=== PATIENT | male | born 1950 | race Caucasian/White ===

== ENCOUNTER 2022-07-07 11:39 | Inpatient (IN) | payer MEDICARE, OTHER ==
[~2022-07-07] VITALS: Ht 167.6 cm; Wt 78.5 kg
[2022-07-07] MEDS ORDERED: IV NS 0.9% 1,000 ML BAG IV ONE (12:00)
--- NOTE | 2022-07-07 12:03 | NUR ---
ELECTRICIAN OUTSIDE AT BEDSIDE
[2022-07-07 12:42] LABS: ALANINE AMINOTRANSFERASE 43 U/L (12-78); ALKALINE PHOSPHATASE 75 U/L (46-116); ASPARTATE AMINOTRANSFERASE 20 U/L (15-37); BILIRUBIN,DIRECT 0.1 mg/dL (0.0-0.2); BILIRUBIN,TOTAL 0.6 mg/dL (0.2-1.0); CALCIUM, SERUM 9.7 mg/dL (8.5-10.1); CARBON DIOXIDE 28 mmol/L (21-32); CHLORIDE 102 mmol/L (98-107); GLUCOSE 135 mg/dL (74-106); MAGNESIUM 2.4 mg/dL (1.8-2.4); POTASSIUM 3.8 mmol/L (3.5-5.1); SODIUM SERUM 140 mmol/L (136-145); UREA NITROGEN, BLOOD 22 mg/dL (7-18)
[2022-07-07 12:45] LABS: BASOPHILS # (AUTO) 0.1 K/uL (0.0-0.2); EOSINOPHILS % (AUTO) 2.8 % (0.0-6.0); HEMATOCRIT 51 % (39-51); HEMOGLOBIN 16.7 g/dL (13.5-17.5); LYMPHOCYTES # (AUTO) 1.4 K/uL (0.8-4.8); LYMPHOCYTES % (AUTO) 14.7 % (20.0-44.0); MEAN CORPUSCULAR HGB CONC 33 g/dl (31.0-36.0); MEAN CORPUSCULAR VOLUME 91 fL (80-96); MONOCYTES # (AUTO) 0.6 K/uL (0.1-1.30); NEUTROPHILS % (AUTO) 75.5 % (43.0-81.0); PLATELET COUNT (AUTO) 123 K/uL (150-450); RED BLOOD CELL COUNT(AUTO) 5.62 MIL/uL (4.5-6.0); WHITE BLOOD COUNT (AUTO) 9.3 K/uL (4.3-11.0)
[2022-07-07] MEDS ORDERED: DILTIAZEM HCL 25 MG IV ONE (12:49)
--- NOTE | 2022-07-07 12:55 | NUR ---
COVID SWAB OBTAINED AND SENT TO LAB
[2022-07-07] MEDS ORDERED: DILTIAZEM HCL 25 MG IV IV ONE ×2 (13:00→14:30)
[2022-07-07] MEDS ORDERED: IV NS 0.9% 1,000 ML IV ONE (14:30)
[2022-07-07] MEDS ORDERED: DILTIAZEM HCL 50 MG IV ONE (14:34)
[2022-07-07] MEDS ORDERED: LOSA25TA27 PO (15:09)
[2022-07-07] MEDS ORDERED: ASCO-352 PO (15:11)
[2022-07-07] MEDS ORDERED: CYAN-51 PO (15:11)
--- NOTE | 2022-07-07 15:27 | NUR ---
BED 309-1. ADMITTING DEPARTMENT NOTIFIED.
[2022-07-07] MEDS ORDERED: MAGNESIUM HYDROXIDE 30 ML UDC PO PRN (15:30)
[2022-07-07] MEDS ORDERED: HYDROCODONE/APAP 5/325MG TABLET PO PRN (15:30)
[2022-07-07] MEDS ORDERED: DILTIAZEM HCL CD 120 MG PO SCH (15:30)
[2022-07-07] MEDS ORDERED: LORAZEPAM 1 MG TABLET PO PRN (15:30)
[2022-07-07] MEDS ORDERED: ONDANSETRON HCL/PF 4 MG/2 ML VIAL IVP PRN (15:30)
[2022-07-07] MEDS ORDERED: MORPHINE SULFATE INJ 2 MG/ML DISP.SYRIN IV PRN (15:30)
[2022-07-07] MEDS ORDERED: TEMAZEPAM 15 MG CAPSULE PO PRN (15:30)
[2022-07-07] MEDS ORDERED: Z GUARD REMEDY 4 OZ OINT TP PRN (15:30)
[2022-07-07] MEDS ORDERED: ACETAMINOPHEN 325 MG TABLET PO PRN (15:30)
[2022-07-07] MEDS ORDERED: MAG HYDROX/AL HYDROX/SIMETH 30 ML UDC PO PRN (15:30)
--- NOTE | 2022-07-07 15:33 | NUR ---
REPORT GIVEN TO DEVIN ON THE 3RD FLOOR
--- NOTE | 2022-07-07 16:19 | NUR ---
TAR MANATM MECHANIC NOTE (DAY SHIFT 3 ) Patient arrived to [facility], Room 309- Bed 1 at 16:12 hours via gurney from ED Room # 1. Patient presented as alert and oriented x 4 , in no distress, denying pain, denying nausea, denying vomiting, denying dizziness. Patient stated he was experiencing rapid heart rate. alarm security or surveillance monitor showing uncontrolled atrial fibrillation ranging from 80s bpm to 120 bpm. Vital signs were stable: Temp= 98.2F oral; HR = 83; RR= 20; Pain=0; BP = 124/71; O2 Sat = 96% RA. Patient was accompanied by his two daughters who translated from Spanis to Uzbek for nurse since patient speaks only German. Oriented patient and his daughters to room, call for help vila, phone system and safety protocols. Safety precautions in place: bed in lowest/locked brakes position; three bed side rails up; call vila/light with bed side table within easy reach of patient. Will continue to monitor and care for patient per hospitalist provider's POC.
[2022-07-07] MEDS ORDERED: AMIODARONE 150 MG in IV D5W 100 ML IV ONE (18:30)
[2022-07-07] MEDS ORDERED: AMIODARONE 450 MG in IV D5W 250 ML IV PRN (18:30)
--- NOTE | 2022-07-07 18:50 | NUR ---
TRANSFER TO [facility] FOR CLOSE MEDICATION MONITORING RN NOTE Patient transferred in his bed to [facility], Room 214- Bed 1 per MD order, accompanied by his daughters at 18:45 hours. Report given to receiving RN at [facility].
--- NOTE | 2022-07-07 18:55 | NUR ---
RN NOTES: RECEIVED PT FROM [facility] UNIT.AWAKE ALERT AND ORIENTED X 4 DENIED CHEST PAIN OR DISCOMFORT,FAMILY AT BEDSIDE TO START AMIODARONE DRIP FOR A FIB
[2022-07-07] MEDS: AMIODARONE 450 MG in IV D5W 241 ML IV PRN (19:00)
--- NOTE | 2022-07-07 19:15 | NUR ---
RN NOTES: BEDSIDE REPORT GIVEN TO MADELYN STRATTON , AMIODARONE DRIP ONGOING, WILL CONTINUE PLAN OF CARE
[2022-07-07] MEDS: ENOXAPARIN SODIUM 80 MG/0.8 ML DISP.SYRIN SQ SCH (19:22)
--- NOTE | 2022-07-07 19:30 | NUR ---
[facility] RN OPENING NOTE RECEIVED PT IN BED , AWAKE, A/O X 4, SWEDISH SPEAKING, ABLE TO VERBALIZE NEEDS. ON ROOM AIR, TOLERATING WELL, SATING @ 99%. NO S/SX OF ACUTE RESPI DISTRESS NOTED AT THIS TIME. NO SOB. BREATHING IS EVEN AND UNLABORED. IV ACCESS ON LAC #18G RUNNING AMIO DRIP AT 1MG/MIN. ON TELEMONITOR CURRENTLY READING AFIB AT 80'S, ALL SAFETY MEASURES IMPLEMENTED: BED ALARM IS ON. HEAD OF BED ELEVATED. BED IS LOCKED, IN LOWEST POSITION AND SIDE RAILS UP. CALL LIGHT WITHIN REACH. FAMILY MEMBER AT BEDSIDE. WILL CONTINUE TO MONITOR AND REASSESS FOR ANY CHANGES.
--- NOTE | 2022-07-07 23:00 | NUR ---
RN NOTE PT CONVERTED TO SR WITH HR AT 65. MADE AWARE. WILL CONT TO MONITOR.
[2022-07-08] MEDS: AMIODARONE 450 MG in IV D5W 241 ML IV PRN ×2
--- NOTE | 2022-07-08 00:35 | NUR ---
RN NOTE BP CHECKED AT 90/45. ART GALLERY DIRECTOR ORDERED 500 CC NS BOLUS. TITRATED AMIO DRIP TO .5MG/MIN ORDERED. WILL CONT TO MONITOR.
[2022-07-08] MEDS ORDERED: IV NS 0.9% 500 ML IV ONE (01:30)
[2022-07-08 06:17] LABS: BASOPHILS # (AUTO) 0.1 K/uL (0.0-0.2); BASOPHILS % (AUTO) 0.5 % (0.0-2.0); HEMATOCRIT 48 % (39-51); HEMOGLOBIN 15.7 g/dL (13.5-17.5); LYMPHOCYTES # (AUTO) 1.6 K/uL (0.8-4.8); LYMPHOCYTES % (AUTO) 14.4 % (20.0-44.0); MEAN CORPUSCULAR HGB CONC 33 g/dl (31.0-36.0); MEAN CORPUSCULAR VOLUME 93 fL (80-96); MONOCYTES # (AUTO) 0.7 K/uL (0.1-1.30); NEUTROPHILS # (AUTO) 8.6 K/uL (1.8-8.9); NEUTROPHILS % (AUTO) 77.1 % (43.0-81.0); PLATELET COUNT (AUTO) 122 K/uL (150-450); RED BLOOD CELL COUNT(AUTO) 5.17 MIL/uL (4.5-6.0); WHITE BLOOD COUNT (AUTO) 11.2 K/uL (4.3-11.0)
[2022-07-08] MEDS: ENOXAPARIN SODIUM 80 MG/0.8 ML DISP.SYRIN SQ SCH ×2 (06:18→18:29)
--- NOTE | 2022-07-08 06:38 | NUR ---
[facility] RN CLOSING NOTE PT REMAINS IN BED , ASLEEP, A/O X 4, WELSH SPEAKING, ABLE TO VERBALIZE NEEDS. ON ROOM AIR, TOLERATING WELL, SATING @ 99%. NO S/SX OF ACUTE RESPI DISTRESS NOTED AT THIS TIME. NO SOB. BREATHING IS EVEN AND UNLABORED. IV ACCESS ON LAC #18G SL. ON TELEMONITOR CURRENTLY READING SR AT 65, ALL SAFETY MEASURES IMPLEMENTED: BED ALARM IS ON. HEAD OF BED ELEVATED. BED IS LOCKED, IN LOWEST POSITION AND SIDE RAILS UP. CALL LIGHT WITHIN REACH. FAMILY MEMBER AT BEDSIDE. ALL DUE MEDS GIVEN, KEPT DRY AND CLEAN, WILL ENDORSE TO AM SHIFT NURSE FOR CONTINUITY CARE.
[2022-07-08 06:45] LABS: CALCIUM, SERUM 8.3 mg/dL (8.5-10.1); MAGNESIUM 2.3 mg/dL (1.8-2.4); PHOSPHORUS 3.1 mg/dL (2.5-4.9); POTASSIUM 3.7 mmol/L (3.5-5.1)
[2022-07-08 06:50] LABS: THYROID STIMULATING HORMONE 1.875 uIU/mL (0.358-3.74)
[2022-07-08 08:00] VITALS: BP 158/81
[2022-07-08] MEDS: PANTOPRAZOLE 40 MG TABLET.DR PO SCH (09:10)
[2022-07-08] MEDS: LOSARTAN POTASSIUM 25 MG TABLET PO SCH (09:10)
[2022-07-08] MEDS: ASCORBIC ACID 500 MG TABLET PO SCH (09:10)
[2022-07-08] MEDS: ASPIRIN 81 MG TAB.CHEW PO SCH (09:11)
[2022-07-08] MEDS: DRONEDARONE HYDROCHLORIDE 400 MG TABLET PO SCH ×2 (09:59→17:51)
[2022-07-08] MEDS: ATORVASTATIN 10 MG TABLET PO SCH (09:59)
[2022-07-08 12:00] VITALS: BP 123/56
--- NOTE | 2022-07-08 12:00 | NUR ---
RN NOTE PT EDUCATED ON NEED FOR [facility]. PT IN AGREEMENT WITH TEST. CONSENT SIGNED.
[2022-07-08] MEDS ORDERED: IOHEXOL-350 100 ML VIAL IV ONE (12:48)
[2022-07-08] MEDS ORDERED: IV NS 0.9% 250 ML IV ONE (12:48)
[2022-07-08] MEDS: METOPROLOL TARTRATE INJ 5 MG/5 ML AMPUL IVP PRN ×2 (13:10→13:15)
[2022-07-08] MEDS ORDERED: NITROGLYCERIN 0.4 MG/TAB BOTTLE SL ONE (13:30)
--- NOTE | 2022-07-08 13:35 | NUR ---
RN NOTE PT BACK FROM [facility]. DAUGHTER AT BEDSIDE. VITAL SIGNS STABLE
[2022-07-08 16:00] VITALS: BP 134/65
--- NOTE | 2022-07-08 19:30 | NUR ---
[facility] RN OPENING NOTE RECEIVED PT IN BED, AWAKE, A/O X 4, VINCENTIAN SPEAKING, ABLE TO VERBALIZE NEEDS. ON ROOM AIR, TOLERATING WELL, SATING @ 99%. NO S/SX OF ACUTE RESPI DISTRESS NOTED AT THIS TIME. NO SOB. BREATHING IS EVEN AND UNLABORED. IV ACCESS ON LAC #18G SL INTACT AND PATENT. ON TELEMONITOR CURRENTLY READING SR AT 74, ALL SAFETY MEASURES IMPLEMENTED: BED ALARM IS ON. HEAD OF BED ELEVATED. BED IS LOCKED, IN LOWEST POSITION AND SIDE RAILS UP. CALL LIGHT WITHIN REACH. FAMILY MEMBER AT BEDSIDE. WILL CONTINUE TO MONITOR AND REASSESS FOR ANY CHANGES.
[2022-07-08 20:00] VITALS: BP 112/72
--- NOTE | 2022-07-08 20:40 | NUR ---
NEMATOLOGIST CLOSING NOTE PT REMAINS IN BED , ASLEEP, A/O X 4, PERSIAN SPEAKING, ABLE TO VERBALIZE NEEDS. ON ROOM AIR, TOLERATING WELL, SATING @ 99%. NO S/SX OF ACUTE RESPI DISTRESS NOTED AT THIS TIME. NO SOB. BREATHING IS EVEN AND UNLABORED. IV ACCESS ON LAC #18G SL. ON TELEMONITOR CURRENTLY READING SR IN 70S, ALL SAFETY MEASURES IMPLEMENTED: BED ALARM IS ON. HEAD OF BED ELEVATED. BED IS LOCKED, IN LOWEST POSITION AND SIDE RAILS UP. CALL LIGHT WITHIN REACH. FAMILY MEMBER AT BEDSIDE. ALL DUE MEDS GIVEN, KEPT DRY AND CLEAN, WILL ENDORSE TO PM SHIFT NURSE FOR CONTINUITY CARE.
[2022-07-08] MEDS ORDERED: ATORVASTATIN 40 MG TABLET PO SCH (22:00)
[2022-07-09] VITALS: BP 102/60
[2022-07-09 04:00] VITALS: BP 116/70
[2022-07-09] MEDS: ENOXAPARIN SODIUM 80 MG/0.8 ML DISP.SYRIN SQ SCH (06:15)
--- NOTE | 2022-07-09 06:41 | NUR ---
[facility] RN CLOSING NOTE PT REMAINS IN BED, ASLEEP, A/O X 4, SURINAMESE SPEAKING, ABLE TO VERBALIZE NEEDS. ON ROOM AIR, TOLERATING WELL, SATING @ 97%. NO S/SX OF ACUTE RESPI DISTRESS NOTED AT THIS TIME. NO SOB. BREATHING IS EVEN AND UNLABORED. IV ACCESS ON LAC #18G SL. ON TELEMONITOR CURRENTLY READING SB AT 57, ALL SAFETY MEASURES IMPLEMENTED: BED ALARM IS ON. HEAD OF BED ELEVATED. BED IS LOCKED, IN LOWEST POSITION AND SIDE RAILS UP. CALL LIGHT WITHIN REACH. FAMILY MEMBER AT BEDSIDE. ALL DUE MEDS GIVEN, KEPT DRY AND CLEAN, WILL ENDORSE TO AM SHIFT NURSE FOR CONTINUITY CARE.
[2022-07-09 07:56] LABS: CALCIUM, SERUM 8.5 mg/dL (8.5-10.1); CREATININE 1.1 mg/dL (0.6-1.3); POTASSIUM 3.5 mmol/L (3.5-5.1)
--- NOTE | 2022-07-09 07:58 | NUR ---
[facility] RN NOTE PATIENT IN BED ALERT ORIENTED FAMILY AT BEDSIDE . ON TELE MONITOR ,SR HR 82 ON A NO SOB NOTED AT THIS TIME, LAC HL INTACT AND FLUSHED WELL , BED IN LOWEST AND LOCKED POSITION , ALL NEEDS ATTENDED WILL CONT TO MONITOR CLOSELY, CALL LIGHT WITHIN REACH
[2022-07-09 08:00] VITALS: BP 118/75
[2022-07-09] MEDS: ASPIRIN 81 MG TAB.CHEW PO SCH (08:24)
[2022-07-09] MEDS: ATORVASTATIN 10 MG TABLET PO SCH (08:24)
[2022-07-09] MEDS: PANTOPRAZOLE 40 MG TABLET.DR PO SCH (08:24)
[2022-07-09] MEDS: ASCORBIC ACID 500 MG TABLET PO SCH (08:24)
[2022-07-09] MEDS: DRONEDARONE HYDROCHLORIDE 400 MG TABLET PO SCH (09:29)
[2022-07-09] MEDS: LOSARTAN POTASSIUM 25 MG TABLET PO SCH (09:31)
--- NOTE | 2022-07-09 09:34 | NUR ---
REVERBERATORY FURNACE SUPERVISOR NOTE SEEN BY DR GORDILLO LEATHER COLORER AWARE CT ANGIO RESULT , ALSO PER DR GORDILLO OK TO GIVE MULTAQ 400 MG AND COZAAR NOTIFIED THAT BP 118/75 HR 51-61
[2022-07-09 12:00] VITALS: BP 123/70
--- NOTE | 2022-07-09 12:10 | NUR ---
manager telecom note rounds made ,all needs attended not in distress. daughter at bedside, will cont to monitor closely
[2022-07-09] MEDS ORDERED: DRON400T6 PO (13:08)
[2022-07-09] MEDS ORDERED: ASPI-1169 PO (13:08)
[2022-07-09] MEDS ORDERED: APIX5TAB PO (13:08)
[2022-07-09] MEDS ORDERED: ATOR10TA PO (13:08)
--- NOTE | 2022-07-09 14:00 | NUR ---
NIRAJ STRATTON NOTE SEEN BY TERESA STRATTON BREAST SPLITTER OK TO DISCHARGE HOME , ORDER CARRIED OUT
--- NOTE | 2022-07-09 14:09 | NUR ---
teletype mechanic note discharge instruction given to daughter and patient ,instructed to f\u with primary care doctor and dr seals antitank assault gunner, phone number given , also explained how to take new medication and home medication and possible side effects , belonging checked by jewel hole rough opener ,tele removed , hl on lt ac removed no bleeding noted , taken to lobby on w\c with jewel hole rough opener and daughter at bedside , went home with stable condition
== END 2022-07-09 15:35 | disposition home or self-care (01) | DRG 282 ==
LOC: ER 12:24 → TELE 15:44 → TELE1 18:35 → TELE-TD 18:37 → TELE1 07-09 08:53
PROVIDERS: ADMIT Nurse Practitioner Acute Care; ATTEND Nurse Practitioner Acute Care
DX: I48.91 Unspecified atrial fibrillation (principal); I21.A1 Myocardial infarction type 2; I10 Essential (primary) hypertension; Z20.822 Contact with and (suspected) exposure to COVID-19; I25.10 Atherosclerotic heart disease of native coronary artery without angina pectoris; Z79.899 Other long term (current) drug therapy; R73.03 Prediabetes; E78.5 Hyperlipidemia, unspecified
CPT/HCPCS: 36415; 71045-TC; 75574; 80048-TC; 80061-TC; 80076-TC; 83735-TC; 83880; 84100-TC; 84443-TC; 84484-TC; 85025-TC; 87081-TC; 93307-TC; A4223; C9803; G0378; J0282; J1650; J3490; J7030; J7040; J7050; J7060; Q9967